=== PATIENT | male | born 1985 | race American Indian/Alaskan Native ===

== ENCOUNTER 2018-05-01 02:24 | Emergency (ER) | payer MEDICAID ==
[2018-05-01 02:25] VITALS: BMI 26.6
--- NOTE | 2018-05-01 03:46 | C.PDOC ---
History Of Present Illness 33 year old male patient brought to the ER by police for bizarre public behavior. Time Seen by Provider: 05/01/18 02:34 Chief Complaint (Nursing): Medical Clearance History Per: Patient History/Exam Limitations: no limitations Onset/Duration Of Symptoms: Hrs Current Symptoms Are (Timing): Still Present Past Medical History Reviewed: Historical Data, Nursing Documentation, Vital Signs - [facility] Procedures INSERTION OF INFUSION DEV INTO L FEMOR VEIN, PERC APPROACH (08/07/16) REPAIR FACE SKIN, EXTERNAL APPROACH (08/07/16) RESPIRATORY VENTILATION, LESS THAN 24 CONSECUTIVE HOURS (08/07/16) VACCINATION NEC (02/22/15) Family History: States: Unknown Family Hx - Social History Hx Alcohol Use: Yes Hx Substance Use: No - Immunization History Hx Tetanus Toxoid Vaccination: No Hx Influenza Vaccination: No Hx Pneumococcal Vaccination: No Review Of Systems Except As Marked, All Systems Reviewed And Found Negative. Constitutional: Positive for: Other (bizarre public behavior ) Physical Exam - Physical Exam Appears: Non-toxic, No Acute Distress Skin: Normal Color, Warm, Dry Head: Atraumatic Extremity: Other (b/l toe amputation) Neurological/Psych: Other (argumentive; confrontational) Disoriented To: Person ED Course And Treatment Reevaluation Time: 05:24 Reassessment Condition: Improved Medical Decision Making Medical Decision Making: Impression: bizarre public behavior alcohol intox, malingering no acute issues of feet at this time appropriate for opt f/u. Disposition Doctor Will See Patient In The: Office Counseled Patient/Family Regarding: Studies Performed, Diagnosis - Disposition Disposition: HOME/ ROUTINE Disposition Time: 05:25 Condition: GOOD Forms: [facility] (Macedonian) - Clinical Impression Clinical Impression: Alcohol abuse - Scribe Statement The provider has reviewed the documentation as recorded by the Nelly Garcia Do Provider Attestation: All medical record entries made by the Atifibnataliya were at my direction and personally dictated by me. I have reviewed the chart and agree that the record accurately reflects my personal performance of the history, physical exam, medical decision making, and the department course for this patient. I have also personally directed, reviewed, and agree with the discharge instructions and disposition.
== END 2018-05-01 05:54 | disposition home or self-care (01) ==
LOC: C.ER 02:24
DX: F10.10 Alcohol abuse, uncomplicated (principal)